=== PATIENT | female | born 1960 | race Caucasian/White ===

== ENCOUNTER 2023-10-27 07:55 | Emergency (ER) | payer OTHER, SELFPAY ==
[2023-10-27] VITALS (9 sets, daily range): BP systolic 108–156; BP diastolic 59–108
--- NOTE | 2023-10-27 08:27 | ED.GENMED ---
History of Present Illness
<Graeme Foreman MD - Last Filed: 10/27/23 14:42>
General
Chief Complaint: Chest Pain
Source: patient
Exam Limitations: none
Time Seen by Provider: 10/27/23 08:08
Nursing documentation reviewed up to this point in time: agreed with
<Ashley Wei MD, Resident - Last Filed: 10/31/23 00:09>
General
Source: patient
History of Present Illness
History of Present Illness:
63 yr old F with history of HTN, hypercholesterolemia, and remote hx of non-hodgkins lymphoma, presents to the ED for sharp, 7/10 chest pain that woke her up from sleep this morning, clammy hands, nausea, and 'indigestion'. Also reports mid back
pain which she attributes to discomfort from lying on the stretcher. She denies jaw/shoulder/neck pain, recent illness or fever/chills. She admits to being under recent emotional stress. She rarely takes PRN valium but she did take it last night for
stress.
On arrival to the ED, symptoms have improved with only residual mild chest pressure.
Past History
<Ashley Wei MD, Resident - Last Filed: 10/31/23 00:09>
Past History
ED Past Medical History: Arrthythmia (Atrial fib, PVC's), Cancer (Non-Hodgkin's lymphoma), GERD, HTN, Valvular disease (Mitral valve prolapse) and Other (Migraines Vertigo, Kidney stones)
ED Past Surgical History: Cholecystectomy, and Other (Vein Stripping, breast augmentation)
Patient has exhibited threatening behavior?: No
Social History
Tobacco: Former smoker (Quit 40 years ago)
Alcohol: Occasional
Drug: None
Personal:
Living: with family
Employment: Employed
Family History
Family History: CAD and Other (CVA)
Review of Systems
<Ashley Wei MD, Resident - Last Filed: 10/31/23 00:09>
Review of Systems
Allergies reviewed?: Yes
Constitutional: Denies fever or chills
Respiratory: Denies trouble breathing
Cardiac: Denies chest pain, diaphoresis or palpitations
ABD/GI: Denies abdominal pain, nausea or vomiting
: Denies dysuria, flank pain or difficulty voiding
Phy Exam
<Ashley Wei MD, Resident - Last Filed: 10/31/23 00:09>
General Physical Exam
General Presentation: well appearing and no apparent distress
General age: appears stated age
General Skin: warm and dry
ENT Exam
ENT Exam: pharynx normal, neck supple and other (moist mucous membranes)
Cardiovascular Exam
Cardiovascular Exam: regular rate/rhythm, no edema, no gallop, no JVD and no murmur
Heart Sounds: normal
Pulmonary Exam
Pulmonary Exam: lungs clear, no respiratory distress, no rales, no crackles, no rhonchi and no wheezing
Cough: no cough
Gastrointestinal Exam
Gastrointestinal Exam: normal bowel sounds, non tender, soft and non distended
Scores
<Graeme Foreman MD - Last Filed: 10/27/23 14:42>
Heart Score for Chest Pain Patients
STEMI patient?: No
History: Moderately Suspicious
ECG: Normal
Age: </= 45 years
Risk Factors: 1 or 2 Risk Factors
Troponin: </= Normal Limit
Heart Score for Chest Pain Patients: 2
Heart Score Risk: 2.5% MACE over next 6 weeks
<Ashlye Wei MD, Resident - Last Filed: 10/31/23 00:09>
Heart Score for Chest Pain Patients
Heart Score for Chest Pain Patients: 2
Heart Score Risk: 2.5% MACE over next 6 weeks
Course
<Graeme Foreman MD - Last Filed: 10/27/23 14:42>
Orders/Labs/Results
Orders:
Orders
10/27/23 07:56
Electrocardiogram (*1) Urgent
Reason for Study: Chest Pain
EKG- Treatment ONCE
10/27/23 08:20
CMP [Comprehensive Metabolic Panel] Urgent
Complete Blood Count/With Diff Urgent
Lipase Urgent
Magnesium Urgent
Comment: ADD ON
Troponin I Urgent
10/27/23 08:32
Electrocardiogram (*1) Urgent
Reason for Study: Chest Pain
EKG- Treatment ONCE
Aspirin Chewable [Low Strength Aspirin] 324 mg PO NOW STA
Nitroglycerin Sublingual [Nitrostat (Sublingual)] 0.4 mg SL NOW STA
10/27/23 08:33
Aspirin Chewable [Low Strength Aspirin] 324 mg .ROUTE .STK-MED ONE
Nitroglycerin Sublingual [Nitrostat (Sublingual)] 0.4 mg .ROUTE .STK-MED ONE
CR Chest Portable - 1 View Urgent
Comment:
Reason For Exam: chest pain
Reason Study Needs to be Portable: Patient Unstable
10/27/23 08:34
Add On- LAB Urgent
Tests Added?: magnesium
10/27/23 09:04
CARDIOLOGY CONSULT Urgent
Consulting Provider: Catrachito Wong
Was physician already notified: Yes
Reason for consult: chest pain
10/27/23 09:12
EKG- Treatment ONCE
10/27/23 11:57
Troponin I Urgent
10/27/23 12:00
Electrocardiogram (*1) Urgent
Reason for Study: Chest Pain
Abnormal Lab Results
10/27/23
08:20
RBC 3.79 L 10^6/uL
(4.20-5.40)
Hgb 11.9 L g/dL
(12.0-16.0)
Hct 34.4 L %
(37.0-47.0)
MCH 31.4 H pg
(27.0-31.0)
Monocytes % 10.1 H %
(1.7-9.3)
Carbon Dioxide 31 H mmol/L
(22-30)
BUN 22 H mg/dl
(7-17)
Glucose 101 H mg/dl
(70-99)
10/27/23 08:20
10/27/23 08:20
Vital Signs
Initial and Last Documented VS:
Initial Vital Signs
Temp Pulse Resp BP Pulse Ox
98.5 F 84 18 137/87 100
10/27/23 08:01 10/27/23 08:01 10/27/23 08:01 10/27/23 08:01 10/27/23 08:01
Last Documented Vital Signs
Temp Pulse Resp BP Pulse Ox
98.5 F 67 14 120/75 97
10/27/23 08:01 10/27/23 14:15 10/27/23 14:15 10/27/23 14:00 10/27/23 14:15
<Ashley Wei MD, Resident - Last Filed: 10/31/23 00:09>
Orders/Labs/Results
Orders:
Orders
10/27/23 07:56
Electrocardiogram (*1) Urgent
Reason for Study: Chest Pain
EKG- Treatment ONCE
10/27/23 08:20
CMP [Comprehensive Metabolic Panel] Urgent
Complete Blood Count/With Diff Urgent
Lipase Urgent
Magnesium Urgent
Comment: ADD ON
Troponin I Urgent
10/27/23 08:32
Electrocardiogram (*1) Urgent
Reason for Study: Chest Pain
EKG- Treatment ONCE
Aspirin Chewable [Low Strength Aspirin] 324 mg PO NOW STA
Nitroglycerin Sublingual [Nitrostat (Sublingual)] 0.4 mg SL NOW STA
10/27/23 08:33
Aspirin Chewable [Low Strength Aspirin] 324 mg .ROUTE .STK-MED ONE
Nitroglycerin Sublingual [Nitrostat (Sublingual)] 0.4 mg .ROUTE .STK-MED ONE
CR Chest Portable - 1 View Urgent
Comment:
Reason For Exam: chest pain
Reason Study Needs to be Portable: Patient Unstable
10/27/23 08:34
Add On- LAB Urgent
Tests Added?: magnesium
10/27/23 09:04
CARDIOLOGY CONSULT Urgent
Consulting Provider: Catrachito Wong
Was physician already notified: Yes
Reason for consult: chest pain
10/27/23 09:12
EKG- Treatment ONCE
10/27/23 11:57
Troponin I Urgent
10/27/23 12:00
Electrocardiogram (*1) Urgent
Reason for Study: Chest Pain
Abnormal Lab Results
10/27/23
08:20
RBC 3.79 L 10^6/uL
(4.20-5.40)
Hgb 11.9 L g/dL
(12.0-16.0)
Hct 34.4 L %
(37.0-47.0)
MCH 31.4 H pg
(27.0-31.0)
Monocytes % 10.1 H %
(1.7-9.3)
Carbon Dioxide 31 H mmol/L
(22-30)
BUN 22 H mg/dl
(7-17)
Glucose 101 H mg/dl
(70-99)
10/27/23 08:20
10/27/23 08:20
Vital Signs
Initial and Last Documented VS:
Initial Vital Signs
Temp Pulse Resp BP Pulse Ox
98.5 F 84 18 137/87 100
10/27/23 08:01 10/27/23 08:01 10/27/23 08:01 10/27/23 08:01 10/27/23 08:01
Last Documented Vital Signs
Temp Pulse Resp BP Pulse Ox
98.5 F 67 14 120/75 97
10/27/23 08:01 10/27/23 14:15 10/27/23 14:15 10/27/23 14:00 10/27/23 14:15
<Ashley Wei MD, Resident - Last Filed: 10/31/23 00:09>
MDM/Problems Addressed
Differential Diagnosis Includes:
Acute coronary syndrome, GERD
<Graeme Foreman MD - Last Filed: 10/27/23 14:42>
*EKG
Interpreted by ED Provider?: Yes
EKG Intrepretation Date: 10/27/23
Heart Rate: 87
Rate: normal
Rhythm: sinus
[place]: normal axis
Interval: normal interval
Ischemia: ST depression
<Ashley Wei MD, Resident - Last Filed: 10/31/23 00:09>
*Critical Care Note
Total Time (30-74mins, 75-104mins- exclusive of procedures): Not Applicable
ED Attending Note
<Graeme Foreman MD - Last Filed: 10/27/23 14:42>
ED Attending Note
Patient seen and examined by attending physician: Yes
ED Attending Note:
Patient with history of hypertension, presents to ED secondary to sudden onset of chest pain which woke the patient from sleep around 6:30 AM. Chest pain described as pressure, associated with nausea and clamminess. Denies dizziness, shortness of
breath, or vomiting. Denies radiating pain. Patient states that her chest pain has improved since onset, but is continuing. Denies back pain. Denies leg pain or swelling. No recent travel or surgery. Denies recent illness. Denies recent
change in medications or diet. Denies previous history of similar symptoms. There is family history of heart disease. Denies smoking.
Physical Exam
General: mild distress, not acutely ill
Neck: supple. no meningeal signs.
Heart: s1/s2 regular rate and rhythm, no murmur. equal radial pulses.
Lungs: no acute respiratory distress. clear bilaterally. chest wall nontender to palpation.
Abdomen: normal bowel sounds. not tender.
Neuro: alert and oriented. no focal neurological deficits
Skin: no rash
Psychiatric: well kept. interactive and cooperative
Extremities: no edema. no calf tenderness.
Initial EKG with nonspecific ST depression noted along inferior and lateral leads. However, looking back at patient's previous EKGs, there has been EKGs with similar findings in the past. In light of patient's presenting symptoms, concerning for
unstable angina, along with family history, patient will be given aspirin and nitroglycerin, along with blood work and repeat EKG.
Patient evaluated in ED by Dr. Wong, cardiology. Recommends an outpatient stress echocardiogram. Appointment and instructions provided to the patient by cardiology prior to discharge.
<Ashley Wei MD, Resident - Last Filed: 10/31/23 00:09>
-
Portions of this chart may have been created with voice recognition software.� Occasional wrong word or��sound alike� substitutions may have occurred due to the inherent limitations of voice recognition software.
Discharge Plan
Departure
Patient Disposition: Home (Routine Discharge)
Date of Disposition: 10/27/23
Time of Disposition: 14:41
Patient with high blood pressure during this ER visit?: Yes
Condition: Good
Discharge Problem:
Chest pain
Instructions: Chest pain
Prescriptions:
No Action
rosuvastatin [Crestor] 5 mg Tablet
5 mg PO HS
candesartan-hydrochlorothiazid 16-12.5 mg Tablet
1 tab PO HS
ezetimibe [Zetia] 10 mg Tablet
10 mg PO QPM
potassium chloride 20 mEq Tablet Extended Release
20 meq PO QPM
diazepam 5 MG tablet
5 mg PO HSPRN PRN (Reason: sleep)
Referrals:
Cody Jeffery DO [Family Provider] -
Matt Francis MD [Active] -
Activity Restrictions/Additional Instructions:
As discussed, please follow-up with your director new product for further evaluation treatment, including obtaining already scheduled outpatient stress echocardiogram. Please return to ED with any worsening symptoms
Interventions
Interventions:
*Risk Screen - Suicide Last Done: 10/27/23 08:03
*General Assessment Last Done: 10/27/23 08:03
*Neglect/Abuse Screening Last Done: 10/27/23 08:03
ED- Fall Risk Assessment Last Done: 10/27/23 08:22
*ED COVID-19 Vaccine History Last Done: 10/27/23 08:20
*Nursing Disposition Last Done: 10/27/23 15:03
ED- Cardiac Assessment Last Done: 10/27/23 08:22
Discharge Date and Time
Discharge Date/Time: 10/27/23 15:04
Print Language: TUVALUAN
[2023-10-27 08:30] LABS: % Basophils 0.7 % (0-2); % Immature Granulocytes 0.3 % (0-0.5); % Lymphocytes 32.7 % (20.5-51.1); % Monocytes 10.1 % (1.7-9.3); % Neutrophils 53.2 % (42.2-75.2); Absolute Eosinophils 0.2 10^3/uL (0-0.7); Absolute Lymphocytes 1.9 10^3/uL (1.2-3.4); Absolute Monocytes 0.6 10^3/uL (0.1-0.6); Absolute Neutrophils 3.1 10^3/uL (1.4-6.5); Hematocrit 34.4 % (37.0-47.0); Hemoglobin 11.9 g/dL (12.0-16.0); Mean Corp Hgb Conc. 34.6 g/dL (33.0-37.0); Mean Corpuscular Hgb 31.4 pg (27.0-31.0); Mean Corpuscular Volume 90.8 fL (81.0-99.0); Mean Platelet Volume 10.2 fL (7.4-10.4); Nucleated Red Blood Cells % 0 %; Platelet Count 310 10^3/uL (130-400); Red Blood Cell Count 3.79 10^6/uL (4.20-5.40); Red Cell Dist. Width 13.2 % (11.5-14.5); White Blood Cell Count 5.8 10^3/uL (4.8-10.8)
[2023-10-27] MEDS: LOW STRENGTH ASPIRIN 324 MG PO (08:35)
[2023-10-27] MEDS: NITROSTAT (SUBLINGUAL) 0.4 MG SL (08:36)
[2023-10-27 08:45] LABS: ALT (SGPT) 24 U/L (0-35); AST (SGOT) 34 U/L (14-36); Albumin 4.6 g/dl (3.5-5.0); Alkaline Phosphatase 67 U/L (38-126); Blood Urea Nitrogen 22 mg/dl (7-17); Calcium 9.9 mg/dl (8.4-10.2); Carbon Dioxide 31 mmol/L (22-30); Chloride 102 mmol/L (98-107); Glucose 101 mg/dl (70-99); Lipase 94 U/L (23-300); Potassium 3.5 mmol/L (3.5-5.1); Sodium 142 mmol/L (135-145); Total Bilirubin 1.2 mg/dl (0.2-1.3); eGFR > 60.00
[2023-10-27 08:54] LABS: Troponin I 0.028 ng/ml
[2023-10-27 09:11] LABS: Magnesium 1.7 mg/dl (1.6-2.3)
[2023-10-27 12:45] LABS: Troponin I 0.029 ng/ml
--- NOTE | 2023-10-27 13:25 | CON.CAR ---
Addendum entered and electronically signed by Catrachito Wong MD 10/27/23 15:11:
I saw and examined the patient.
The CAN DRAGGER or PA's note was reviewed and I agree with the note.
Comment: General: Well developed, well nourished in NAD.
Neck: Supple, no JVD, HJR, carotids +2 B/L, no bruits bilaterally.
Heart: Non displaced PMI, RRR, no murmurs, No S3, S4, no rubs.
Lungs: Clear to auscultation bilaterally, no wheeze, rhonchi, rubs bilaterally,
normal expiratory phase.
Extremities: No clubbing, cyanosis or edema bilaterally.
Neuro: Grossly nonfocal, awake, alert and oriented x3.
Nano has a history of long COVID with palpitations, non-Hodgkin's lymphoma status post mantle radiation, paroxysmal atrial flutter, hypercholesterolemia, mitral valve prolapse with mild to moderate MR, coronary disease based on abnormal coronary
calcium score of 111 in 2021. She exercises regularly with weights and treadmill. She admits to significant stress in the past 24 hours. She woke up with chest discomfort. She came to the ER. She was given nitroglycerin which did not help the
pain. EKG was slightly abnormal on admission. Initial troponin was undetectable repeat was 0.028 then 0.029. She denies chest pain at the present time.
Discussed in detail with patient. Suspicion for CAD is low. There were subtle EKG changes on admission which have resolved. We discussed inpatient stress testing versus outpatient stress testing and she opts for outpatient stress test if it can
be arranged soon. Will check stress echo on 10/30/2023. She is told to return with any recurrent chest discomfort
Original Note:
Consultation
Consultation Request
Date/Time Consultation Performed: 10/27/23
Requesting Provider: Dr. Foreman
Performing Provider: Gilma Nelson PA-C for Dr. Wong
Reason for Consultation: CP
Medical History
-
Chief Complaint: CP
History of Present Illness:
Patient is a 63 yo F with PMH of long COVID with palpitations, history of non-Hodgkin's lymphoma status post mantle radiation, paroxysmal atrial flutter, hypercholesterolemia, mitral valve prolapse with mild to moderate MR, calcium score of 111 in
2021 who presented to [facility] for evaluation of chest pain. She states she had a very stressful night last night. This morning she states chest pain woke her from sleep. She reports she grabbed her chest upon waking. She describes
the pain as central and sharp in nature which then changed to more of a heavy quality. She had some associated nausea and clamminess. She denies lightheadedness. She denied feeling anxious. Denied palpitations, fevers, chills, cough. She states
she exercised at the gym yesterday without any difficulty and has not recently noticed activity limitations. She denies recent travel, recent medication changes, or recent chest trauma or injury. She states she was given aspirin and sublingual
nitro in ER, without noting significant improvement in pain, although states her pain did seem to go away with time. She states then the pain did recur however resolved again without any medication or intervention. She is currently pain-free.
Troponins flat at 0.02. Cardiology consulted for evaluation
PMH:
History of long COVID with palpitations
History of non-Hodgkin's lymphoma status post mantle radiation
Paroxysmal atrial flutter
Hypercholesterolemia
Mitral valve prolapse with mild to moderate MR
Calcium score of 111 in 2021
Past Medical History
Past Medical History: Other (in HPI)
Social History
Tobacco: Non-Smoker
Alcohol: Occasional
Personal:
Living: With Family
Employment: Employed
Family History
Family History: CAD (in mother)
Allergies / Home Medications
Allergy/AdvReac Type Severity Reaction Status Date / Time
levofloxacin [From Levaquin] Allergy STOMACH Verified 10/27/23 08:01
PAIN AND
NAUSEA
nitrofurantoin Allergy Nausea AND Verified 10/27/23 08:01
[From Macrobid] ABDOMINAL
PAIN
�Medication �Instructions �Recorded �Confirmed �Type
candesartan 16 1 tab PO HS 10/27/23 10/27/23 History
mg-hydrochlorothiazide 12.5 mg
tablet
diazepam 5 mg tablet 5 mg PO HSPRN PRN sleep 10/27/23 10/27/23 History
ezetimibe 10 mg tablet (Zetia) 10 mg PO QPM 10/27/23 10/27/23 History
potassium chloride 20 mEq 20 meq PO QPM 10/27/23 10/27/23 History
tablet,extended release
rosuvastatin 5 mg tablet 5 mg PO HS 10/27/23 10/27/23 History
Review of Systems
-
History Source: Patient
All other systems: Negative unless noted
Physical Exam
Vital Signs
Temp Pulse Resp BP Pulse Ox
98.5 F 59 15 118/60 98
10/27/23 08:01 10/27/23 10:30 10/27/23 10:30 10/27/23 10:00 10/27/23 10:30
Lab Results
10/27/23 08:20
10/27/23 08:20
Troponin I 0.029 ng/ml 10/27/23 11:57
Physical Exam
General: No Apparent Distress and Comfortable
HEENT: Normocephalic, Anicteric and Moist Mucous Membranes
Respiratory: Clear and Non Labored Respirations
Cardiac: S1/S2 and Regular Rhythm
GI: Soft, Non Tender, Non Distended and Normal Bowel Sounds
Musculoskeletal: No Clubbing, No Cyanosis and No Edema
Skin: Warm and Dry
Neuro: AO x 3
Impression / Plan
-
Primary [place]: Dr. EMILY Francis
Assessment:
Presentation with CP
Normal but detectable troponins 0.02
History of long COVID with palpitations
History of non-Hodgkin's lymphoma status post mantle radiation
Paroxysmal atrial flutter
Hypercholesterolemia
Mitral valve prolapse with mild to moderate MR
Calcium score of 111 in 2021
ECHO 07/30/21: EF 55 to 60%, mild bilateral mitral prolapse with mild MR, normal LA
CT coronary calcium score 08/2021: Score of 111.5 which corresponds to 90th percentile for age and gender
Exercise nuclear stress test 2020: Normal perfusion imaging without evidence of ischemia, EF preserved, positive ST segment response to exercise, presumably false positive in setting of normal imaging
Plan:
-Patient presents with chest pain which woke her from sleep this morning. Troponins flat in 0.02 range. Currently pain-free.
-Initial EKG with possible lateral T wave depression with subsequent improvement by repeat EKGs
-CXR without active disease
-Some typical and some atypical features of angina -states she exercised yesterday without difficulty or limitation
-She was offered inpatient vs outpatient evaluation. She has opted for outpatient, arranged for stress echo Sunday 10/29
-consider addition of aspirin 81 mg daily
-Continue Crestor. Add Zetia as previously recommended by primary mold preparer
-Blood pressure stable continue candesartan/HCTZ
-return to ER with recurrence of symptoms
Data Reviewed
-
EKG: Tracing Personally Visualized and interpreted
Radiology: Report Reviewed by me
Medical Tests (Nuc Med, Echo etc): Report Reviewed by me
Labs: Labs Reviewed by me
Old Records: Reviewed
== END 2023-10-27 15:04 | disposition home or self-care (01) ==
LOC: EMR 07:55
PROVIDERS: CONSULT PHYSICIAN Internal Medicine Cardiovascular Disease; EMERGENCY PHYSICIAN Emergency Medicine; FAMILY PHYSICIAN Family Medicine
DX: R07.89 Other chest pain (principal); I10 Essential (primary) hypertension; E78.00 Pure hypercholesterolemia, unspecified; Z87.891 Personal history of nicotine dependence
CPT/HCPCS: 99285; 71045; 80053; 83690; 83735; 84484; 85025; 93005

== ENCOUNTER → 2023-10-30 13:08 | Outpatient (REF) | payer OTHER, SELFPAY | LOC: RCS 13:08 | PROVIDERS: ATTENDING PHYSICIAN Internal Medicine Cardiovascular Disease | DX: R07.9 Chest pain, unspecified (principal); R94.31 Abnormal electrocardiogram [ECG] [EKG] | CPT/HCPCS: 93017; 93350 ==

== ENCOUNTER → 2023-11-06 10:25 | Day surgery (SDC) | payer OTHER, SELFPAY ==
[2023-11-06] VITALS (11 sets, daily range): BP systolic 99–130; BP diastolic 52–112; BMI 20.7
[2023-11-06] MEDS: NSS 180 ML IV (12:03)
--- NOTE | 2023-11-06 13:34 | ITS.CL.CATH ---
[employer] - Catheterization
Cardiac Catheterization
Procedure Report:
LEFT HEART CATHETERIZATION
Date of Procedure: November 06, 2023
Referring: Dr. Matt Francis
PROCEDURES:
1. Left heart catheterization with coronary and single-plane left ventriculography
INDICATION: This is a 63-year-old female with a past medical history notable for non-Hodgkin's lymphoma treated with mantle radiation. She has an elevated coronary calcium score and has experienced intermittent substernal chest tightness. A recent
stress test was notable for good exercise tolerance achieving 10 METS of physical activity with no stress echocardiographic evidence of stress-induced ischemia. However, she does have an elevated coronary calcium score and ultimately the decision
was made to refer for coronary angiography. She did not experience any chest discomfort with the stress of exercise
ACCESS: Right radial artery, 6 [place] sheath
HEMODYNAMICS : (mmHg)
AO (s/d, m) : 141/73, 98
LV (s/d) : 131/8
LVEDP : 16
CORONARY FINDINGS
DOMINANCE: Right
LEFT MAIN: Mild tubular narrowing with no pressure dampening on engagement of a 6 Vietnamese diagnostic catheter.
LEFT ANTERIOR DESCENDING: The LAD arises normally from the left main and runs in the anterior interventricular groove. The ostial LAD has a 20% stenosis. The mid LAD is noted to be heavily calcified. The LAD between the first and second diagonal
branches has a 20-30% narrowing and there is a 30% stenosis beyond the second diagonal branch. The remainder of the LAD has only minor irregularities.
CIRCUMFLEX: The circumflex is a medium caliber nondominant vessel. OM1 is small to medium caliber. OM 2 and small with minor irregularities. The circumflex terminates in a third obtuse marginal branch which has a 30% proximal narrowing
RIGHT CORONARY ARTERY: The right coronary artery is a dominant vessel. There are tandem 30% mid RCA narrowings and 50% stenosis in the distal RCA. The PDA is small and widely patent.
VENTRICULOGRAPHY: Left ventriculography was performed in an GLASS projection. The digital single-plane left ventricular ejection fraction is estimated at 60%.
RADIATION SUMMARY: Fluoro Time (min): 2.9, Dose (mGy): 164, DAP (Gy.cm2) : 11.6
Closure Device: TR band
CONCLUSIONS
1. Diffuse moderate coronary artery disease with no focal high-grade stenosis. A recent stress echocardiogram was notable for a very good exercise tolerance with no stress echocardiographic evidence of ischemic changes
2. Preserved left ventricular systolic function
RECOMMENDATIONS
1. Continued medical management. Baseline LDL cholesterol was close to 170 mg/dL. She was started on 10 mg of rosuvastatin which she tolerated poorly and decreased to 5 mg daily. She was prescribed ezetimibe, however, never took the medication.
2. Continue aspirin
Copy to: Dr. Matt Francis
[2023-11-06] MEDS: TYLENOL 650 MG PO (15:22)
== END | disposition home or self-care (01) ==
LOC: CATH 10:25
PROVIDERS: ATTENDING PHYSICIAN Internal Medicine Interventional Cardiology; FAMILY PHYSICIAN Family Medicine; OTHER PHYSICIAN Internal Medicine Cardiovascular Disease
DX: I25.10 Atherosclerotic heart disease of native coronary artery without angina pectoris (principal); R07.89 Other chest pain; I25.84 Coronary atherosclerosis due to calcified coronary lesion; Z79.82 Long term (current) use of aspirin; Z92.3 Personal history of irradiation; C85.90 Non-Hodgkin lymphoma, unspecified, unspecified site; I48.0 Paroxysmal atrial fibrillation; U09.9 Post COVID-19 condition, unspecified; I34.0 Nonrheumatic mitral (valve) insufficiency; Z85.72 Personal history of non-Hodgkin lymphomas
CPT/HCPCS: 93458; Q9967

== ENCOUNTER → 2024-03-04 08:46 | Outpatient (REF) | payer OTHER, SELFPAY | LOC: WDC 08:46 | PROVIDERS: ATTENDING PHYSICIAN Family Medicine | DX: D17.1 Benign lipomatous neoplasm of skin and subcutaneous tissue of trunk (principal); N64.59 Other signs and symptoms in breast | CPT/HCPCS: 76642; 77062; 77066 ==

== ENCOUNTER → 2024-11-03 14:08 | Outpatient (REF) | payer OTHER, SELFPAY | LOC: RAD 14:08 | PROVIDERS: ATTENDING PHYSICIAN Internal Medicine Hematology & Oncology; FAMILY PHYSICIAN Family Medicine | DX: C85.90 Non-Hodgkin lymphoma, unspecified, unspecified site (principal) | CPT/HCPCS: 71260; Q9967 ==